=== PATIENT | female | born 1950 | race Two or more races ===

== ENCOUNTER 2018-01-11 09:41 | Outpatient (CLI) | payer OTHER | END 2018-01-11 09:45 | disposition home or self-care (01) | LOC: MAMO-SONO 09:41 | DX: Z12.31 Encounter for screening mammogram for malignant neoplasm of breast (principal); Z87.898 Personal history of other specified conditions; N60.11 Diffuse cystic mastopathy of right breast ==

== ENCOUNTER 2019-02-14 13:44 | Outpatient (CLI) | payer OTHER | END 2019-02-14 14:00 | disposition home or self-care (01) | LOC: MAMO-SONO 13:44 | DX: Z12.31 Encounter for screening mammogram for malignant neoplasm of breast (principal); Z87.898 Personal history of other specified conditions; N60.11 Diffuse cystic mastopathy of right breast ==

== ENCOUNTER 2020-02-20 14:14 | Outpatient (CLI) | payer OTHER | END 2020-02-20 14:22 | disposition home or self-care (01) | LOC: MAMO-SONO 14:14 | PROVIDERS: ATTEND Obstetrics & Gynecology | DX: Z12.31 Encounter for screening mammogram for malignant neoplasm of breast (principal); D24.1 Benign neoplasm of right breast; N60.11 Diffuse cystic mastopathy of right breast ==

== ENCOUNTER 2021-03-02 10:35 | Outpatient (CLI) | payer OTHER | END 2021-03-02 10:46 | disposition home or self-care (01) | LOC: MAMO-SONO 10:35 | PROVIDERS: ATTEND Obstetrics & Gynecology | DX: N60.11 Diffuse cystic mastopathy of right breast (principal); Z12.31 Encounter for screening mammogram for malignant neoplasm of breast ==

== ENCOUNTER 2022-05-10 07:25 | Outpatient (CLI) | payer OTHER | END 2022-05-10 07:31 | disposition home or self-care (01) | LOC: MAMO-SONO 07:25 | PROVIDERS: ATTEND Obstetrics & Gynecology | DX: N60.11 Diffuse cystic mastopathy of right breast (principal); R10.9 Unspecified abdominal pain; R10.2 Pelvic and perineal pain ==

== ENCOUNTER 2022-06-07 07:29 | Outpatient (CLI) | payer OTHER | END 2022-06-07 07:34 | disposition home or self-care (01) | LOC: RAD 07:29 | PROVIDERS: ATTEND Obstetrics & Gynecology | DX: R05.8 Other specified cough (principal) ==

== ENCOUNTER → 2022-06-07 07:49 | Outpatient (CLI) | payer OTHER | END | disposition home or self-care (01) | LOC: LAB 07:49 | PROVIDERS: ATTEND Obstetrics & Gynecology | DX: N91.1 Secondary amenorrhea (principal); R07.89 Other chest pain ==

== ENCOUNTER 2022-06-10 08:41 | Outpatient (CLI) | payer OTHER ==
[2022-06-21] MEDS ORDERED: SYNTHROID50 MCG PO (09:29)
[2022-06-21] MEDS ORDERED: OTEZLA30 MG PO (09:30)
[2022-06-21] MEDS ORDERED: HYZAAR 50-12.51 EACH PO (09:30)
[2022-06-21] MEDS ORDERED: FENOFIBRATE145 MG PO (09:30)
== END 2022-06-10 08:43 | disposition home or self-care (01) ==
LOC: SONOGRAMA 08:41
PROVIDERS: ATTEND Pathology Anatomic Pathology & Clinical Pathology
DX: D34 Benign neoplasm of thyroid gland (principal); E04.9 Nontoxic goiter, unspecified; E04.1 Nontoxic single thyroid nodule

== ENCOUNTER 2022-06-25 14:40 | Day surgery (SDC) | payer OTHER ==
[~2022-06-25 14:40] MED LIST: FENOFIBRATE145 MG PO; HYZAAR 50-12.51 EACH PO; OTEZLA30 MG PO; SYNTHROID50 MCG PO
== END 2022-06-26 00:50 | disposition home or self-care (01) ==
LOC: CIR.AMB 14:40
PROVIDERS: ATTEND Obstetrics & Gynecology
DX: N84.0 Polyp of corpus uteri (principal); N88.2 Stricture and stenosis of cervix uteri; Z20.822 Contact with and (suspected) exposure to COVID-19; I10 Essential (primary) hypertension

== ENCOUNTER 2024-01-02 14:53 | Outpatient (CLI) | payer OTHER | END 2024-01-02 15:01 | disposition home or self-care (01) | LOC: MAMO-SONO 14:53 | PROVIDERS: ATTEND Obstetrics & Gynecology | DX: N60.11 Diffuse cystic mastopathy of right breast (principal); Z12.31 Encounter for screening mammogram for malignant neoplasm of breast ==

== ENCOUNTER 2025-02-25 08:59 | Outpatient (CLI) | payer OTHER | END 2025-02-25 09:07 | disposition home or self-care (01) | LOC: MAMO-SONO 08:59 | PROVIDERS: ATTEND Obstetrics & Gynecology | DX: N60.11 Diffuse cystic mastopathy of right breast (principal); Z12.31 Encounter for screening mammogram for malignant neoplasm of breast ==